=== PATIENT | female | born 1945 | race Caucasian/White ===

== ENCOUNTER 2018-07-04 14:21 | Inpatient (IN) | payer MEDICARE ==
[~2018-07-04] VITALS: Ht 162.6 cm; Wt 40.0 kg
[2018-07-04] VITALS (32 sets, daily range): BP systolic 61–142; BP diastolic 35–93; Ht 162.6 cm; Wt 40.0 kg
[2018-07-04 15:08] LABS: BASOPHILS 0.2 % (0-2); EOSINOPHILS 0.2 % (0-7); HEMATOCRIT 25.6 % (36.0-48.0); HEMOGLOBIN 7.7 g/dL (12-16); IMMATURE GRANULOCYTES 2.2 % (0-5); LYMPHOCYTES 7.3 % (15-50); MCHC 30.1 g/dL (31.0-37.0); MCV 86.5 fL (80.0-100.0); MEAN PLATELET VOLUME 10.4 fL (7.4-10.4); MONOCYTES 5.8 % (2-11); NEUTROPHILS 84.3 % (40-80); PLATELET COUNT 477 10x3/uL (130-400); RBC 2.96 10x6/uL (4.00-5.40); RDW 17.2 % (11.5-14.5); WBC 17.6 10x3/uL (4.8-10.8)
[2018-07-04 15:09] LABS: INR 1.25 (0.85-1.17); PROTIME 15.4 SECONDS (11.6-15.0)
[2018-07-04 15:16] LABS: ALBUMIN 1.2 g/dL (3.4-5.0); ALKALINE PHOSPHATASE 164 U/L (46-116); ALT (SGPT) 40 U/L (10-68); BILIRUBIN - TOTAL 0.15 mg/dL (0.2-1.3); CALCIUM 8.6 mg/dL (8.5-10.1); CKMB 1.2 U/L (0.0-3.6); CREATINE KINASE 67 UL (21-215); CREATININE - SERUM 0.7 mg/dL (0.6-1.3); GLUCOSE 156 mg/dL (74-106); MAGNESIUM - SERUM 1.6 mg/dL (1.8-2.4); POTASSIUM - SERUM 3.6 mmol/L (3.5-5.1); THYROID STIMULATING HORMONE 4.47 uIU/mL (0.36-3.74); UREA NITROGEN 12 mg/dL (7-18); eGFR NON AFRICAN AMERICAN 87 mL/min (90-120)
[2018-07-04 15:21] LABS: CALC OSMOLALITY 244 mosm/kg (275-300); CHLORIDE - SERUM 85 mmol/L (98-107); SODIUM 120 mmol/L (136-145); TROPONIN-I < 0.017 ng/mL (0.000-0.060)
[2018-07-04 15:38] LABS: APPEARANCE CLEAR (CLEAR); BILIRUBIN NEGATIVE (NEGATIVE); COLOR YELLOW (YELLOW); GLUCOSE 50 mg/dL (NEGATIVE); KETONE NEGATIVE (NEGATIVE); NITRITE NEGATIVE (NEGATIVE); PROTEIN 2+ mg/dL (NEGATIVE); SPECIFIC GRAVITY 1.015 (1.005-1.020); UROBILINOGEN NORMAL (NORMAL)
[2018-07-04 15:39] LABS: WHITE CELLS - URINE 0-5 /hpf (0-5)
[2018-07-04 15:40] LABS: BACTERIA MODERATE /hpf (NONE SEEN); EPITHELIAL CELLS 0-5 /hpf (0-5); HYALINE CAST 0-5 /lpf (NONE SEEN)
[2018-07-04 15:42] LABS: UDS - AMPHET NEGATIVE QUAL (NEGATIVE); UDS - BARB NEGATIVE QUAL (NEGATIVE); UDS - BENZO NEGATIVE QUAL (NEGATIVE); UDS - COCAINE NEGATIVE QUAL (NEGATIVE); UDS - OPIATE NEGATIVE QUAL (NEGATIVE); UDS - PCP NEGATIVE QUAL (NEGATIVE); UDS - THC NEGATIVE QUAL (NEGATIVE)
[2018-07-05] VITALS (42 sets, daily range): BP systolic 54–138; BP diastolic 45–82
[2018-07-05] MEDS ORDERED: PROTONIX40 MG PO (02:26)
[2018-07-05] MEDS ORDERED: METOPROLOL TART25 MG PO (02:27)
[2018-07-05] MEDS ORDERED: NORCO 5/325 TAB1 TAB PO (02:27)
[2018-07-05] MEDS ORDERED: GABAPENTIN100 MG PO (02:28)
[2018-07-05] MEDS ORDERED: CELEXA20 MG PO (02:28)
[2018-07-05] MEDS ORDERED: ZOFRAN8 MG PO (02:29)
[2018-07-05] MEDS ORDERED: CARAFATE1 G PO (02:29)
[2018-07-05] MEDS ORDERED: REGLAN5 MG PO (02:30)
[2018-07-05 06:09] LABS: HEMATOCRIT 38.1 % (36.0-48.0); HEMOGLOBIN 12.6 g/dL (12-16); MCH 27.6 pg (26.0-34.0); MCHC 33.1 g/dL (31.0-37.0); MCV 83.4 fL (80.0-100.0); MEAN PLATELET VOLUME 11.1 fL (7.4-10.4); PLATELET COUNT 498 10x3/uL (130-400); RBC 4.57 10x6/uL (4.00-5.40); RDW 15.6 % (11.5-14.5); WBC 24.2 10x3/uL (4.8-10.8)
[2018-07-05 06:44] LABS: ALBUMIN 1.5 g/dL (3.4-5.0); ALKALINE PHOSPHATASE 181 U/L (46-116); ALT (SGPT) 46 U/L (10-68); BILIRUBIN - TOTAL 0.68 mg/dL (0.2-1.3); CALCIUM 8.7 mg/dL (8.5-10.1); CHLORIDE - SERUM 89 mmol/L (98-107); PHOSPHOROUS 1.9 mg/dL (2.5-4.9); POTASSIUM - SERUM 3.3 mmol/L (3.5-5.1); PRO BNP 7592 pg/mL (0-125); PROTEIN - SERUM 5.9 g/dL (6.4-8.2); SODIUM 132 mmol/L (136-145); UREA NITROGEN 12 mg/dL (7-18); VANCOMYCIN - RANDOM 3.6 ug/mL (10.0-20.0)
[2018-07-05 06:46] LABS: CALC OSMOLALITY 264 mosm/kg (275-300); CREATININE - SERUM 0.5 mg/dL (0.6-1.3); GLUCOSE 102 mg/dL (74-106); MAGNESIUM - SERUM 1.1 mg/dL (1.8-2.4); eGFR NON AFRICAN AMERICAN > 90 mL/min (90-120)
[2018-07-05 06:48] LABS: TROPONIN-I 0.065 ng/mL (0.000-0.060)
[2018-07-05 07:10] LABS: HYPOCHROMASIA OCC; LYMPHOCYTES 4 % (15-50); MONOCYTES 7 % (2-11); NEUTROPHILS 74 % (40-80); PLATELET ESTIMATE INCREASED; SMUDGE CELLS OCC
== END 2018-07-05 15:10 | DRG 871 ==
LOC: D.ER 14:21 → EDBD 14:21 → D.EDHOLD 15:32 → D.ICU 15:32
PROVIDERS: Family Medicine
PROC: 5A1935Z Respiratory Ventilation, Less than 24 Consecutive Hours (ICD-10-PCS; principal; 2018-07-04)
DX: A41.9 Sepsis, unspecified organism (principal); J96.01 Acute respiratory failure with hypoxia; J96.02 Acute respiratory failure with hypercapnia; G93.6 Cerebral edema; J18.9 Pneumonia, unspecified organism; R40.2313 Coma scale, best motor response, none, at hospital admission; R40.2113 Coma scale, eyes open, never, at hospital admission; R40.2213 Coma scale, best verbal response, none, at hospital admission; E46 Unspecified protein-calorie malnutrition; Z68.1 Body mass index [BMI] 19.9 or less, adult; J44.1 Chronic obstructive pulmonary disease with (acute) exacerbation; G93.1 Anoxic brain damage, not elsewhere classified; E87.2 Acidosis; E87.1 Hypo-osmolality and hyponatremia; I46.9 Cardiac arrest, cause unspecified; E87.6 Hypokalemia; D64.9 Anemia, unspecified; G25.3 Myoclonus; I95.9 Hypotension, unspecified; R53.81 Other malaise; L89.90 Pressure ulcer of unspecified site, unspecified stage